=== PATIENT | male | born 1960 | race African-American/Black ===

== ENCOUNTER 2020-01-10 23:41 | Emergency (ER) | payer OTHER ==
[~2020-01-10] VITALS: Ht 172.7 cm; Wt 79.0 kg
[~2020-01-10 23:41] MED LIST: MECLAZINE; NAPROXEN
[2020-01-11 00:39] LABS: BASOPHILS % 1.3 % (0.0-2.0); EOSINOPHILS % 2.3 % (0.0-5.0); HEMATOCRIT. 46.9 % (42.0-52.0); HEMOGLOBIN. 15.4 g/dL (14.0-18.0); LYMPHOCYTES % 43.2 % (20.0-50.0); MEAN CORPUSCULAR HEMOGLOBIN 27.4 pg (28.0-32.0); MEAN CORPUSCULAR VOLUME 83.4 fL (80.0-94.0); MEAN PLATELET VOLUME 8.1 fl (7.4-10.4); MONOCYTES % 11.3 % (2.0-8.0); NEUTROPHILS % 41.9 % (40.0-76.0); PLATELET 352 x1000/uL (130-400); RED BLOOD CELL COUNT 5.63 mill/uL (4.7-6.1)
[2020-01-11 00:48] LABS: CHLORIDE 108 mEq/L (98-107)
[2020-01-11 02:10] VITALS: BP 157/80
== END 2020-01-11 02:11 | disposition home or self-care (01) ==
LOC: ER 23:41
DX: R53.1 Weakness (principal); R53.83 Other fatigue; Z85.46 Personal history of malignant neoplasm of prostate
CPT/HCPCS: 36415; 71045; 80053; 85025; 93005; 99285

== ENCOUNTER 2024-04-11 03:04 | Emergency (ER) | payer OTHER ==
[~2024-04-11] VITALS: Ht 162.6 cm; Wt 74.0 kg
[2024-04-11 03:35] VITALS: O2SAT 99
[2024-04-11 04:24] LABS: BASOPHILS % 1.2 % (0.0-2.0); DIFFERENTIAL COMMENT 0; EOSINOPHILS % 3.7 % (0.0-5.0); HEMATOCRIT. 45.1 % (42.0-52.0); HEMOGLOBIN. 14.7 g/dL (14.0-18.0); LYMPHOCYTES % 35.2 % (20.0-50.0); MEAN CORPUSCULAR HEMOGLOBIN 27.9 pg (28.0-32.0); MEAN CORPUSCULAR HGB CONC 32.6 g/dL (31.0-37.0); MEAN CORPUSCULAR VOLUME 85.5 fL (80.0-94.0); MEAN PLATELET VOLUME 8.8 fl (7.4-10.4); NEUTROPHILS % 46.9 % (40.0-76.0); PLATELET 334 x1000/uL (130-400); RED BLOOD CELL COUNT 5.28 mill/uL (4.7-6.1); RED CELL DISTRIBUTION WIDTH 14.8 % (11.6-14.6); WHITE BLOOD COUNT 6.1 x1000/uL (4.5-11.0)
[2024-04-11 04:50] LABS: CHLORIDE 102 mEq/L (98-107); SODIUM 138 mEq/L (136-145)
[2024-04-11 04:51] LABS: CARBON DIOXIDE 27 mEq/L (21-32)
[2024-04-11 04:52] LABS: CALCIUM 9.9 mg/dL (8.7-10.4)
[2024-04-11 04:56] LABS: CREATININE 1.2 mg/dL (0.6-1.3)
[2024-04-11 04:57] LABS: GLUCOSE 105 mg/dL (70-105); UREA NITROGEN BLOOD 13 mg/dL (9-23)
[2024-04-11 04:58] LABS: ALANINE AMINOTRANSFERASE 43 IU/L (10-49); ALBUMIN 4.8 g/dL (3.2-4.8); ASPARTATE AMINOTRANSFERASE 36 IU/L (<34)
[2024-04-11 04:59] LABS: BILIRUBIN DIRECT 0.2 mg/dL (<=3.0); BILIRUBIN TOTAL 0.7 mg/dL (0.1-1.0); PROTEIN TOTAL 7.9 g/dL (6.0-8.3)
[2024-04-11 06:04] LABS: PROTHROMBIN TIME 11.4 sec (9.6-11.0)
[2024-04-11] MEDS ORDERED: IBUP-2029 MT (08:20)
[2024-04-11] MEDS ORDERED: METH-653 MT (08:20)
[2024-04-11 09:13] VITALS: BP 139/83; PULSE 63; RESP 19; TEMP 98.4
[2024-04-11] MEDS: DIAZEPAM 5 MG TABLET PO ONE (09:16)
[2024-04-11 09:55] LABS: CLARITY URINE CLEAR (CLEAR); COLOR URINE YELLOW (YELLOW); GLUCOSE URINE NEGATIVE (NEGATIVE); KETONES URINE NEGATIVE (NEGATIVE); LEUKOCYTE ESTERASE URINE NEGATIVE (NEGATIVE); NITRITE URINE POSITIVE (NEGATIVE); OCCULT BLOOD URINE NEGATIVE (NEGATIVE); PH URINE 5.5 (4.5-8.0); PROTEIN URINE NEGATIVE (NEGATIVE); SPECIFIC GRAVITY URINE 1.015 (1.005-1.030); UROBILINOGEN URINE 0.2 E.U./dL (0.2-1.0)
[2024-04-11 10:11] LABS: BACTERIA URINE 4+; SQUAMOUS EPITHELIAL CELL URINE 1+ /lpf (RARE/1+)
[2024-04-11 10:12] LABS: RBC URINE NONE SEEN /hpf (0-2)
== END 2024-04-11 09:32 | disposition home or self-care (01) ==
LOC: ER 03:04
DX: M43.6 Torticollis (principal); R53.1 Weakness; E78.00 Pure hypercholesterolemia, unspecified
CPT/HCPCS: 36415; 80048; 80076; 81003; 82962; 85025; 93005; 99284

== ENCOUNTER 2024-06-17 18:50 | Emergency (ER) | payer OTHER ==
[~2024-06-17] VITALS: Ht 175.3 cm; Wt 73.0 kg
[~2024-06-17 18:50] MED LIST changes: +IBUP-2029 MT; +METH-653 MT
[2024-06-17 18:56] VITALS: TEMP 98.5; O2SAT 99
[2024-06-17 19:27] LABS: BASOPHILS % 0.8 % (0.0-2.0); EOSINOPHILS % 2.5 % (0.0-5.0); HEMATOCRIT. 45.1 % (42.0-52.0); HEMOGLOBIN. 14.9 g/dL (14.0-18.0); LYMPHOCYTES % 39.1 % (20.0-50.0); MEAN CORPUSCULAR HEMOGLOBIN 28.2 pg (28.0-32.0); MEAN CORPUSCULAR HGB CONC 33.1 g/dL (31.0-37.0); MEAN CORPUSCULAR VOLUME 85.3 fL (80.0-94.0); MONOCYTES % 9.1 % (2.0-8.0); NEUTROPHILS % 48.5 % (40.0-76.0); PLATELET 307 x1000/uL (130-400); RED BLOOD CELL COUNT 5.28 mill/uL (4.7-6.1); RED CELL DISTRIBUTION WIDTH 15.2 % (11.6-14.6)
[2024-06-17 19:33] LABS: CHLORIDE 105 mEq/L (98-107); POTASSIUM 3.9 mEq/L (3.5-5.1); SODIUM 137 mEq/L (136-145)
[2024-06-17 19:34] LABS: CARBON DIOXIDE 26 mEq/L (21-32)
[2024-06-17 19:35] LABS: CALCIUM 9.7 mg/dL (8.7-10.4)
[2024-06-17 19:39] LABS: CREATININE 1.1 mg/dL (0.6-1.3); GLUCOSE 95 mg/dL (70-105)
[2024-06-17 19:40] LABS: UREA NITROGEN BLOOD 10 mg/dL (9-23)
[2024-06-17 22:39] VITALS: BP 148/71; PULSE 56; RESP 18; O2SAT 98
== END 2024-06-17 22:40 | disposition home or self-care (01) ==
LOC: ER 18:50
DX: R53.1 Weakness (principal); E78.00 Pure hypercholesterolemia, unspecified; G31.89 Other specified degenerative diseases of nervous system; Z79.899 Other long term (current) drug therapy
CPT/HCPCS: 36415; 80048; 85025; 99284

== ENCOUNTER 2024-11-08 16:28 | Inpatient (IN) | payer OTHER ==
[~2024-11-08] VITALS: Ht 162.6 cm; Wt 73.9 kg
[2024-11-08 17:12] LABS: BASOPHILS % 0.9 % (0.0-2.0); DIFFERENTIAL COMMENT 0; EOSINOPHILS % 2.3 % (0.0-5.0); HEMOGLOBIN. 15.4 g/dL (14.0-18.0); LYMPHOCYTES % 38.7 % (20.0-50.0); MEAN CORPUSCULAR HEMOGLOBIN 27.9 pg (28.0-32.0); MEAN CORPUSCULAR HGB CONC 32.7 g/dL (31.0-37.0); MEAN CORPUSCULAR VOLUME 85.2 fL (80.0-94.0); MONOCYTES % 9.6 % (2.0-8.0); NEUTROPHILS % 48.5 % (40.0-76.0); PLATELET 298 x1000/uL (130-400); RED BLOOD CELL COUNT 5.51 mill/uL (4.7-6.1); RED CELL DISTRIBUTION WIDTH 14.7 % (11.6-14.6); WHITE BLOOD COUNT 5.1 x1000/uL (4.5-11.0)
[2024-11-08 17:16] LABS: CHLORIDE 104 mEq/L (98-107); POTASSIUM 3.9 mEq/L (3.5-5.1); SODIUM 141 mEq/L (136-145)
[2024-11-08 17:17] LABS: CALCIUM 9.6 mg/dL (8.7-10.4); CARBON DIOXIDE 28 mEq/L (21-32)
[2024-11-08 17:22] LABS: CREATININE 1.1 mg/dL (0.6-1.3); GLUCOSE 113 mg/dL (70-105); UREA NITROGEN BLOOD 13 mg/dL (9-23)
[2024-11-08] MEDS: SODIUM CHLORIDE 0.9% 1,000 ML IV ONE (18:42)
[2024-11-08 18:52] LABS: CLARITY URINE CLEAR (CLEAR); COLOR URINE YELLOW (YELLOW); GLUCOSE URINE NEGATIVE (NEGATIVE); KETONES URINE NEGATIVE (NEGATIVE); LEUKOCYTE ESTERASE URINE 1+ (NEGATIVE); NITRITE URINE NEGATIVE (NEGATIVE); OCCULT BLOOD URINE NEGATIVE (NEGATIVE); PH URINE 6.5 (4.5-8.0); PROTEIN URINE NEGATIVE (NEGATIVE); UROBILINOGEN URINE 0.2 E.U./dL (0.2-1.0)
[2024-11-08 20:00] LABS: BACTERIA URINE TRACE; RBC URINE NONE SEEN /hpf (0-2); SQUAMOUS EPITHELIAL CELL URINE FEW /lpf (RARE/1+)
[2024-11-08 21:18] LABS: TROPONIN I HIGH SENSITIVITY < 4 ng/L (3.0-53)
[2024-11-08] MEDS: CEFTRIAXONE 1GM/50ML 50 ML IV ONE (21:21)
[2024-11-08] MEDS: ASPIRIN 325MG EC TABLET PO ONE (22:06)
[2024-11-08 23:43] VITALS: BP 153/74; PULSE 58; RESP 16; TEMP 36.4
[2024-11-09] VITALS: BP 153/74; PULSE 58; RESP 16; TEMP 36.4; O2SAT 98
[2024-11-09] MEDS ORDERED: ONDANSETRON HCL 4MG/2ML INJ IV PRN (00:15)
[2024-11-09] MEDS ORDERED: HYDROCODONE/ACETAMINOPHEN 5/325MG TABLET PO PRN (00:15)
[2024-11-09] MEDS ORDERED: CARB-32 PO (00:20)
[2024-11-09] MEDS ORDERED: CLONIDINE 0.1MG TABLET PO PRN (03:00)
[2024-11-09] MEDS: SODIUM CHLORIDE 0.9% 1,000 ML IV SCH (03:18)
[2024-11-09 04:00] VITALS: BP 122/64; PULSE 52; RESP 18; TEMP 36.4; O2SAT 98
[2024-11-09] MEDS: CARBIDOPA/LEVODOPA 25/100MG TABLET PO SCH (05:30)
[2024-11-09 07:51] LABS: CHLORIDE 107 mEq/L (98-107); SODIUM 141 mEq/L (136-145)
[2024-11-09 07:52] LABS: CALCIUM 9.4 mg/dL (8.7-10.4); CARBON DIOXIDE 27 mEq/L (21-32)
[2024-11-09 07:57] LABS: CREATININE 0.9 mg/dL (0.6-1.3); GLUCOSE 95 mg/dL (70-105); UREA NITROGEN BLOOD 10 mg/dL (9-23)
[2024-11-09 08:00] VITALS: BP 135/67; PULSE 61; RESP 19; TEMP 36.4; O2SAT 98
[2024-11-09 08:40] LABS: HEMOGLOBIN 15.3 g/dL (14.0-18.0); MEAN CORPUSCULAR HEMOGLOBIN 27.8 pg (28.0-32.0); MEAN CORPUSCULAR HGB CONC 32.6 g/dL (31.0-37.0); MEAN CORPUSCULAR VOLUME 85.3 fL (80.0-94.0); PLATELET 264 x1000/uL (130-400); RED BLOOD CELL COUNT 5.51 mill/uL (4.7-6.1); RED CELL DISTRIBUTION WIDTH 14.6 % (11.6-14.6); WHITE BLOOD COUNT 4.2 x1000/uL (4.5-11.0)
[2024-11-09] MEDS: ENOXAPARIN 40MG/0.4ML SYR SUBCUT SCH (09:00)
[2024-11-09] MEDS: PANTOPRAZOLE SODIUM 40 MG/VIAL IV SCH (09:18)
[2024-11-09] MEDS ORDERED: NALOXONE HCL 0.4MG/ML VIAL IV PRN (11:00)
[2024-11-09 12:00] VITALS: BP 135/67; PULSE 61; RESP 19; TEMP 36.4; O2SAT 98
[2024-11-09] MEDS: LORAZEPAM 1MG TABLET PO NR (12:03)
[2024-11-09 16:00] VITALS: BP 133/71; PULSE 61; RESP 19; TEMP 36.3; O2SAT 98
[2024-11-09 20:00] VITALS: BP 157/71; PULSE 63; RESP 18; TEMP 36.4; O2SAT 97
[2024-11-09] MEDS: CEFTRIAXONE 1GM/50ML 50 ML IV SCH (21:04)
[2024-11-10] VITALS: BP 129/65; PULSE 55; RESP 17; TEMP 36.4; O2SAT 99
[2024-11-10 04:00] VITALS: BP 138/70; PULSE 51; PULSE 56; RESP 18; TEMP 36.4; O2SAT 99
[2024-11-10] MEDS: ACETAMINOPHEN 325MG TABLET PO PRN (06:06)
[2024-11-10 08:00] VITALS: BP 131/68; PULSE 88; RESP 18; TEMP 36.6; O2SAT 97
[2024-11-10 12:00] VITALS: BP 126/64; PULSE 84; RESP 17; TEMP 36.3; O2SAT 96
[2024-11-10 12:19] VITALS: BP 126/64; PULSE 84; RESP 17; TEMP 36.3; O2SAT 96
[2024-11-10] MEDS ORDERED: SULF1TAB48 MT (15:30)
[2024-11-10 16:10] VITALS: BP 126/64; PULSE 84; TEMP 97.4; O2SAT 96
== END 2024-11-10 16:45 | disposition home or self-care (01) | DRG 690 ==
LOC: ER 16:28 → EDBEDREQ 18:02 → 6WST 21:10 → EDBEDREQ 21:14
PROVIDERS: ADMIT Internal Medicine; ATTEND Internal Medicine
DX: N39.0 Urinary tract infection, site not specified (principal); I10 Essential (primary) hypertension; G20.A1 Parkinson's disease without dyskinesia, without mention of fluctuations; E78.00 Pure hypercholesterolemia, unspecified; Z79.899 Other long term (current) drug therapy
CPT/HCPCS: 36415; 70551; 71045; 80048; 81003; 84484; 85025; 85027; 87077; 87186; 93005; 99285; J0696; J1650; J2470; J7030